=== PATIENT | male | born 1940 | race Caucasian/White ===

== ENCOUNTER 2017-10-22 10:18 | Outpatient (CLI) | payer MEDICARE, BC ==
--- NOTE | 2017-10-22 12:03 | CT ---
CT LUMBAR SPINE WITHOUT CONTRAST: INDICATION: History of low back pain and claudication. COMPARISON: CT lumbar myelogram dated 09/25/16. FINDINGS: Since the comparison examination, there has been interval revision of the patient's final instrumenta tion with extension of the interlumbar fusion from T11 through S2. The fracture of the of the pedicu lar screw on the right at L5 is unchanged. There has been replacement of the pedicular screws at S1. There is posterolateral morselized bone graft present. There is intervertebral bone cage at L2-3 w hich is new. There is slight residual retrolisthesis of L2 on L3 which is similar. Dorsal column stimulator is no longer identified. No acute fracture is demonstrated. Slight degenerative dextroscoliosis is similar. Visualized retroperitoneum demonstrates moderate calcification involving the abdominopelvic vasculatu re. 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 At L5-S1 level, there is no appreciable osseous central canal or neural foraminal narrowing. At L4-5, there is suspicion for a residual broad-based bulge. There is retrolisthesis. There is los s of disk space height. Constellation of findings of moderate bilateral neural foraminal narrowing w hich appears similar to the comparison study. At L3-4 level, there is mild left neural foraminal narrowing due to osteophyte formation. This appea rs stable to the prior exam. At L2-3, there is no appreciable osseous central canal narrowing. There is mild right osseous neural foraminal narrowing which is stable. At L1-L2, there is no appreciable osseous canal narrowing. There is mild left osseous neural foramin al narrowing which appears similar to the comparison examination. At T12-L1, there is no appreciable central canal or neural foraminal narrowing. At T11-T12, there is some ligamentous flava, hypertrophy, and calcification without appreciable osseo us central canal or neural foraminal narrowing. IMPRESSION: 1. Postoperative revision of the posterolateral spinal fusion from T11 through S2 with revision of t he pedicular screws at S1. The fracture at L5 pedicular screw is unchanged. There has been interval placement of an intervertebral disk cage at L2-3. Slight retrolisthesis of L2 on L3 is similar-appe aring. 2. Multilevel spondylosis with osseous neural foraminal narrowing is stable to the comparison exam. POS: [facility]
== END 2017-10-22 10:19 | disposition home or self-care (01) ==
LOC: CT 10:18
DX: S32.009K Unspecified fracture of unspecified lumbar vertebra, subsequent encounter for fracture with nonunion (principal); M47.26 Other spondylosis with radiculopathy, lumbar region; M43.16 Spondylolisthesis, lumbar region; M99.83 Other biomechanical lesions of lumbar region; Z98.1 Arthrodesis status
CPT/HCPCS: 72131

== ENCOUNTER 2018-04-22 06:49 | Day surgery (SDC) | payer MEDICARE, BC ==
[2018-04-21 12:29] VITALS: BMI 28.5
[2018-04-22 08:19] VITALS: BP 137/82; TEMP 97.3
--- NOTE | 2018-04-22 11:01 | RAD ---
FLUOROSCOPY MYELOGRAM THORACIC SPINE 2 VIEWS: Date: 04/22/18 HISTORY: 78-year-old male with mid back pain and low back pain. Myelogram was performed under CT guidance. Flu oroscopy performed to guide the intrathecal contrast material into the thoracic spine. FINDINGS: The patient was placed in supine Trendelenburg position on fluoroscopy table, allowing the intratheca l contrast material to enter the thoracic spine. The images demonstrate contrast material throughout the entire thoracic spinal canal. IMPRESSION: 1. Successful thoracic myelogram. 2. See separate report of the CT myelograms of the thoracic spine and lumbar spine. POS: [facility]
--- NOTE | 2018-04-22 11:41 | CT ---
CT THORACIC SPINE WITH CONTRAST: (CT THORACIC MYELOGRAM) Date: 04/22/18 HISTORY: 78-year-old male with post laminectomy syndrome and thoracic spine pain. FINDINGS: As demonstrated on the noncontrast CT of lumbar spine of 10/22/17, there are bilateral pedicle screws at T11 and T12, which were placed some time after the previous CT myelogram of the lumbar spine of 0 09/25/16 when there were pedicle screws only in all levels of the lumbar spine, but not in the lower t horacic spine. The distal tip of the left T11 pedicle screw is at the superior end plate of T11. The T11 and T12 pedicle screws do not travel lateral to the pedicles or breach the spinal canal. There is no evidence of hardware loosening involving these two levels. Vertebral body heights are maintained. Thoracic spinal cord is normal in size and position. At T11-12, there is minimal degenerative retrol isthesis of T11 on T12, with vacuum disc phenomenon. Mild, shallow broad based disc bulge at this lev el, together with the minimal retrolisthesis, cause mild-moderate thecal sac stenosis. Otherwise, the re is no high grade central spinal canal stenosis or high grade thecal sac stenosis at any level. The re is no high grade bony neural foraminal stenosis at any level in the thoracic spine. There are vent ral flowing bridging osteophytes protruding into the prevertebral space from T4-5 through T10-11, con sistent with DISH. Thoracic vertebral body heights are preserved. No focal moderate sized or large di sc herniation. No colby impingement on the spinal cord. No major pathology of the perivertebral space s. Postsurgical scar tissue is noted posterior to the dorsal lumbar fascia at the levels of the pedic le screws. IMPRESSION: 1. Bilateral pedicle screws at T11 and T12. 2. Moderate degenerative disc changes and low-grade thecal sac stenosis, at T11-12. 3. No high grade central spinal canal stenosis, high grade neural foraminal stenosis, or any other m ajor pathology identified. 4. Incidental finding of DISH (diffuse idiopathic skeletal hyperostosis). 5. See separate report of the CT lumbar myelogram. POS: [facility]
--- NOTE | 2018-04-22 12:19 | CT ---
CT GUIDED LUMBAR PUNCTURE CT LUMBAR SPINE WITH CONTRAST: (CT LUMBAR MYELOGRAM) Date: 04/22/18 HISTORY: 78-year-old male with post laminectomy syndrome, with thoracic and lumbar spine pain. COMPARISON: CT lumbar myelogram of 09/25/16, and noncontrast lumbar spine CT of 10/22/17. TECHNIQUE: Signed, informed consent obtained. Patient was placed prone on fluoroscopy table. The skin of the low er back was prepared and draped in the usual sterile fashion. 25 gauge needle was used to apply buffe red lidocaine superficially. A 22 gauge spinal needle was advanced from a right paramedian approach, and under step CT guidance, was navigated through the narrow opening of a laminectomy defect with bon y overgrowth, at the L3 level. A total of 10 mL of Isovue-M 300 was injected intrathecally. The spina l needle was removed. The patient tolerated the procedure well. There was no complication. The patien t was then taken to fluoroscopy where he was placed in Trendelenburg position, to allow the contrast to flow throughout the thoracic spine. The patient was then taken back to CT, where his entire thorac ic spine and lumbar spine were scanned while supine. Coronal and sagittal reconstructions were obtain ed. FINDINGS: There are five lumbar-type vertebrae. Vertebral body heights are maintained. Again noted are the bila teral pedicle screws at L1, L2, L3, L4, L5, S1, and S2, as on 09/25/16. Bilateral pedicle screw had b een placed by the time of the noncontrast CT of 10/22/17, at T11 and T12, with extension of interlock ing rods through those levels as well. Furthermore, an interbody cage had been placed at the L2-3 dis c space some time between 09/25/16 and 10/22/17, and it remains. Extensive postsurgical scar tissue i n the posterior perivertebral space centered at midline, contiguous with postsurgical scar tissue sup erficial to the dorsal lumbar fascia, throughout all levels from the lower thoracic spine through the sacral levels. No major pathology of the prevertebral space. T11-12: Slight degenerative retrolisthesis of T11 on T12 along with shallow, mild disc bulge-osteoph ytic bar complex, plus ligamentum flavum thickening and degenerative facet hypertrophy, result in mil d to moderate bilateral neural foraminal stenosis and mild to moderate thecal sac stenosis. T12-L1: No central stenosis. No high grade neural foraminal stenosis. Disc space maintained. Conus m edullaris terminates at mid L1 level. L1-2: Severe disc space narrowing. Slight degenerative retrolisthesis of L1 on L2. Extensive end jillian te sclerosis. No high grade central stenosis. No significant right neural foraminal stenosis. The dis c space narrowing has become worse since 09/25/16. L2-3: Interbody cage, new since 09/25/16. It has settled slightly since 10/22/17. Osseous bridges aviles ve developed between the left sides of the end plates and left endplate osteophytes indicating early successful ankylosis. Degenerative retrolisthesis of L2 on L3 is unchanged since 10/22/17. Despite th is, there is no high grade central spinal canal stenosis. Moderate to severe right neural foraminal s tenosis. Mild left neural foraminal stenosis. L3-4: Again noted are the tiny metallic markers in the intervertebral disc space. Moderate to severe disc space narrowing. Mild disc bulge-osteophytic bar complex indents the ventral aspect of the thec al sac. No osseous bridges between the end plates. Interval development of moderate left neural graciela inal stenosis due to bony overgrowth of the posterior elements since 09/25/16, not significantly rodriguez ged since 10/22/17. No high grade right neural foraminal stenosis. Ligamentum flavum thickening. Mild central spinal canal stenosis. Mild to moderate thecal sac stenosis. The caliber of the thecal sac h as not significantly changed since 09/25/16. L4-5: Heterotopic ossification that has grown medially from the bilateral posterior element onlay federico ne chip grafts partially fused with spinous processes. Slight degenerative retrolisthesis of L4 on L5 . Moderate ligamentum flavum thickening. Somewhat severe bilateral degenerative facet hypertrophy. Mo derate bilateral neural foraminal stenosis, similar to 10/22/17 and 09/25/16. Disc space maintained d espite the retrolisthesis. Mild thecal sac stenosis. No major interval change overall. L5-S1: There is interval worsening of the disc space narrowing between 09/25/16 and 10/22/17, now mo derate, with interval development of minimal Grade I anterolisthesis of L5 on S1. The bilateral S1 pe dicle screws (which had signs of loosening on 09/25/16), had been removed and replaced with new bilat eral S1 pedicle screws on 10/22/17. Those screws remain. They are in more medial positions compared t o the ones on 09/25/16. The right S1 pedicle screw traverses the right lateral recess of the spinal c anal. No signs of loosening of the current hardware. Vertebroplasty cement occupying a significant po rtion of the body of S1. S1-2: Between 09/25/16 and 10/22/17, bilateral S2 pedicle screws had been placed. The one on the rig ht traverses the posterior aspect of the right SI joint. The bilateral pedicle screws distally uyen se the anterior portions of the bilateral SI joints. The one on the right has its distal tip slightly anterior to the right ilium. The one on the left is embedded in the left ilium. No signs of hardware loosening. No signs of chronic arachnoiditis. IMPRESSION: 1. Bilateral pedicle screws at all levels from T11 through S2 connected by vertical interlocking maryann s. 2. Posterior onlay bone graft fusion around posterior elements from approximately L3-4 through S1-2. 3. No high grade central spinal canal stenosis at any level. 4. Neural foraminal stenosis at various levels as described above. 5. Multilevel degenerative disc disease, including moderate and severe levels. 6. Interbody cages of different types at L2-3 (where there is successful partial ankylosis) and L3-4 (where there is no evidence of ankylosis). 7. Old vertebroplasty cement at body of S1. 8. Multilevel high grade facet osteoarthrosis. 9. Bilateral S2 pedicle screws traverse the sacroiliac joint spaces. 10. The right S1 pedicle screw traverses the right lateral recess of the spinal canal. 11. No signs of hardware loosening. POS: [facility]
== END 2018-04-22 10:25 | disposition home or self-care (01) ==
LOC: RAD 06:49
PROVIDERS: ATTEND Specialist
PROC: B02B1ZZ Computerized Tomography (CT Scan) of Spinal Cord using Low Osmolar Contrast (ICD-10-PCS; principal; 2018-04-22)
DX: M96.1 Postlaminectomy syndrome, not elsewhere classified (principal); M47.26 Other spondylosis with radiculopathy, lumbar region; M51.16 Intervertebral disc disorders with radiculopathy, lumbar region; M51.34 Other intervertebral disc degeneration, thoracic region; M48.14 Ankylosing hyperostosis [Forestier], thoracic region; M47.814 Spondylosis without myelopathy or radiculopathy, thoracic region; I10 Essential (primary) hypertension; E78.00 Pure hypercholesterolemia, unspecified; Z79.82 Long term (current) use of aspirin; Z79.899 Other long term (current) drug therapy; Z98.1 Arthrodesis status; Z98.890 Other specified postprocedural states
CPT/HCPCS: 72129; 72132; 76000; 77002

== ENCOUNTER 2018-06-30 13:29 | Day surgery (SDC) | payer MEDICARE, BC ==
[2018-06-29 11:36] VITALS: BMI 29.2
[2018-06-30] MEDS ORDERED: Bupivacaine HCl 0.5%/Epinephrine 1:200,000/PF 30 ml Vial ONE (15:58)
[2018-06-30] MEDS ORDERED: Lidocaine 2% PF 5 ML VIAL ONE (15:58)
[2018-06-30] MEDS ORDERED: Sodium Chloride 0.9% 0 ML ONE (15:58)
[2018-06-30] MEDS ORDERED: Fentanyl 100 MCG/2 ML VIAL ONE ×2 (16:00→18:50)
[2018-06-30] MEDS ORDERED: Propofol 500 MG/50 ML VIAL ONE (16:00)
[2018-06-30] MEDS ORDERED: PROPOFOL 200 MG/20 ML VIAL ONE (16:28)
[2018-06-30] MEDS ORDERED: HYDROcodone/Acetaminophen 5/325 mg Tablet ONE (19:24)
--- NOTE | 2018-06-30 21:12 | RAD ---
SINGLE SUBMITTED FLUOROSCOPIC IMAGE FROM INSERTION OF A STIMULATOR TO THE SPINAL CORD 06/30/18 FINDINGS: There is a dorsal column stimulator projecting off to the mid thoracic spinal level. Total fluoroscop ic time was 3 minutes and 35 seconds. Total exposure was 48.4 mGy. IMPRESSION: Intraoperative C-arm for dorsal column stimulator placement. POS: [facility]
--- NOTE | 2018-07-01 01:09 | OP ---
DATE OF PROCEDURE: 06/30/2018 PREOPERATIVE DIAGNOSES: 1. Post-laminectomy syndrome. 2. Chronic pain syndrome. 3. Lumbar radiculopathy. POSTOPERATIVE DIAGNOSES: 1. Post-laminectomy syndrome. 2. Chronic pain syndrome. 3. Lumbar radiculopathy. PROCEDURES PERFORMED: 1. Spinal cord stimulator generator implant. 2. Spinal cord stimulator lead implant x2. 3. Fluoroscopy. 4. Programming. SPECIMENS: None. ESTIMATED BLOOD LOSS: Minimal. SUMMARY OF PROCEDURE: The patient was taken to the procedure room, placed prone on the procedure room table. A time-out was performed. ChloraPrep was used to prep the skin and sterile drapes were applied. Using fluoroscopy, we located the interspace of T9-10. We anesthetized the skin in a vertical fashion at this level and used the scalpel to make an incision. This was blunt dissected down to the fascia. A 14-gauge supplied Tuohy needle was inserted through the skin and advanced to the ligament. Once inside the ligament, we used loss of resistance to air to gain access to the epidural space. Aspiration was negative for heme or CSF. We then threaded an 8-contact lead up the midline dorsal epidural space up to the midbody of T5. We then placed a contralateral lead in the exact same fashion and threaded up the midline dorsal epidural space so that it was just below the top lead, this was at T8. Stimulation was performed and the patient noted paresthesia in all pain areas. The needles were then removed taking care not to move the leads. Anchors were placed over the leads and these were clicked down to secure them to the lead, 2-0 silk suture was used x2 to fix both anchors to the fascia. We then placed a tension relief loop with 2-0 silk suture x2 as well. A battery pocket was made in the right flank, which was the patient's request. We anesthetized the skin with 0.5% Marcaine with epinephrine. We made an incision and dissected this bluntly down to Diana's fascia. We then dissected superior and inferior. We used a tunneling device to make a tunnel between the two incision points. We threaded both leads through this tunneling device and brought them to the battery pocket. We connected them to the battery and torqued them down, all impedances were good. We inserted the battery into the pocket and then we approximated both fascia layers with 2-0 silk suture in simple interrupted fashion with two anatomical layers. We then approximated the skin using a subcuticular stitch with 3-0 Monocryl. We used Dermabond as an occlusive dressing. The patient was taken to the PACU under stable conditions without any apparent complications noted at this time. Job ID: [id number]
--- NOTE | 2018-07-01 07:11 | EKG ---
Test Reason : PREOP Blood Pressure : / mmHG Vent. Rate : 062 BPM Atrial Rate : 062 BPM P-R Int : 214 ms QRS Dur : 094 ms QT Int : 394 ms P-R-T Axes : 026 -24 -05 degrees QTc Int : 399 ms Sinus rhythm with 1st degree A-V block Moderate voltage criteria for LVH, may be normal variant Borderline ECG When compared with ECG of 02-APR-2016 11:53, MT interval has increased Vent. rate has decreased BY 33 BPM Inverted T waves have replaced nonspecific T wave abnormality in Inferior leads Confirmed by MORENITA JEONG ([id number]) on 07/01/2018 7:10:56 AM Referred By: JOSE DE JESUS Confirmed By:MORENITA JEONG
== END 2018-06-30 19:45 | disposition home or self-care (01) ==
LOC: SDC 13:29
PROVIDERS: ATTEND Specialist
PROC: 0JH70DZ Insertion of Multiple Array Stimulator Generator into Back Subcutaneous Tissue and Fascia, Open Approach (ICD-10-PCS; principal; 2018-06-30)
PROC: 00HU3MZ Insertion of Neurostimulator Lead into Spinal Canal, Percutaneous Approach (ICD-10-PCS; 2018-06-30)
DX: M96.1 Postlaminectomy syndrome, not elsewhere classified (principal); G89.4 Chronic pain syndrome; M47.26 Other spondylosis with radiculopathy, lumbar region; M47.817 Spondylosis without myelopathy or radiculopathy, lumbosacral region; M47.814 Spondylosis without myelopathy or radiculopathy, thoracic region; M46.1 Sacroiliitis, not elsewhere classified; G47.33 Obstructive sleep apnea (adult) (pediatric); E78.5 Hyperlipidemia, unspecified; N40.0 Benign prostatic hyperplasia without lower urinary tract symptoms; I10 Essential (primary) hypertension; E78.00 Pure hypercholesterolemia, unspecified; Z79.82 Long term (current) use of aspirin; Z79.891 Long term (current) use of opiate analgesic; Z79.899 Other long term (current) drug therapy; Z98.890 Other specified postprocedural states; Z99.89 Dependence on other enabling machines and devices
CPT/HCPCS: 63650 ×2; 63685; 72020; 76000; 93005; C1767; 93010; J0670; J2001; J2704; J3010; J3490

== ENCOUNTER 2018-10-10 06:57 | Day surgery (SDC) | payer MEDICARE, BC ==
[2018-10-07 14:15] VITALS: BMI 29.9
[2018-10-10 08:02] VITALS: BP 162/84; TEMP 97.3
--- NOTE | 2018-10-10 08:28 | RAD ---
Please see accompanying CT myelogram dictation
--- NOTE | 2018-10-10 09:55 | CT ---
CT LUMBAR MYELOGRAM: INDICATIONS: Radiculopathy and post laminectomy syndrome COMPARISON: CT lumbar myelogram dated April 22, 2018 TECHNIQUE: Multiple CT images were obtained of the lumbar spine following the intrathecal administration of an C T contrastsolution. Please see the lumbar myelogram for details concerning the injection technique. Axial, coronal, and sagittal reformatted images were constructed from the raw data. FINDINGS: Visualized retroperitoneal and paravertebral soft tissues: There are moderate vascular calcifications seen involving the visualized vasculature. Spinal alignment: See below Spinal instrumentation or postsurgical change: The posterior lateral spinal instrumentation of T11-L2 is relatively stable. The fractured pedicle screw on the right at L5 is stable. The position of the screws within the SI joints at S2 and within the right lateral recess at S1 are stable. There is worsening lucency surrounding the T11 pedicle screws suspicious for loosening. Vertebroplasty change at S1 is stable. At L5-S1, minimal grade 1 anterolisthesis of L5 on S1 is stable. The [id number] bilateral osseo us neural foramina foraminal narrowing secondary to loss of disc space height and disc degenerative disease is stable.. At L4-5, broad-based disc osteophyte complex with facet hypertrophy inducing moderate bilateral neura l foraminal narrowing is stable. There is very slight retrolisthesis of L4 on L5 which is stable. At L3-4, broad-based osteophyte complex and facet hypertrophy inducing mild right and moderate left n eural foramina is stable. At L2-3, osteophyte complex with facet hypertrophy induces stable moderate right and mild left neural foraminal narrowing. At L1-L2, osteophyte complex with facet hypertrophy induces stable veva-by-[id number] left neural graciela inal narrowing. At T12-L1, there is no appreciable central canal or neuroforaminal narrowing. IMPRESSION: 1. Stable multilevel spondylosis of the lumbar spine with multilevel neural foraminal narrowing. 2. Interval development of lucency surrounding the T11 pedicle screws suspicious for loosening.
[2018-10-10] MEDS ORDERED: Iopamidol-M 200 41% 20 ML VIAL ONE (11:11)
== END 2018-10-10 10:10 | disposition home or self-care (01) ==
LOC: RAD 06:57
PROVIDERS: ATTEND Specialist
PROC: B01B1ZZ Fluoroscopy of Spinal Cord using Low Osmolar Contrast (ICD-10-PCS; principal; 2018-10-10)
DX: M47.26 Other spondylosis with radiculopathy, lumbar region (principal); M96.1 Postlaminectomy syndrome, not elsewhere classified; G89.4 Chronic pain syndrome; I10 Essential (primary) hypertension; E78.00 Pure hypercholesterolemia, unspecified; G47.30 Sleep apnea, unspecified; Z99.89 Dependence on other enabling machines and devices; Z79.82 Long term (current) use of aspirin; Z79.899 Other long term (current) drug therapy
CPT/HCPCS: 62304; 72132; Q9966

== ENCOUNTER 2019-01-25 07:13 | Day surgery (SDC) | payer MEDICARE, BC ==
[2019-01-24 12:34] VITALS: BMI 29.9
--- NOTE | 2019-01-25 09:43 | CT ---
CT GUIDED LUMBAR PUNCTURE: INDICATIONS: History of cervical radiculopathy and neck pain with a requested CT cervical myelogram. TECHNIQUE: Review of the patient's prior CT lumbar myelogram was performed from 10/10/2018. There is extensive posterior and posterolateral bone graft overlying the lumbar spine, which would ma ke fluoroscopic lumbar puncture and subsequent myelogram difficult. The patient was then transported to the CT suite for CT guided lumbar myelogram. The site overlying the right L3-L4 inter laminar space was marked. The patient has a right L3-L4 laminectomy defect site which could be utilized to gain access to the spinal canal. The site was marked on the skin. The site was prepped and draped in the usual sterile fashion. Buffered 1% lidocaine was administered to the overlying subcutaneous tissues. Under CT fluoroscopic guidance, a 22 gauge spinal needle was guided through th e right L3-L4 laminectomy site into the spinal thecal sac. There is spontaneous return of normal appearing CSF fluid. Subsequent fluoroscopic images demonstrate opacification of the thecal sac. Fol lowing administration of 14 cc of Isovue 300 M, the inner stylette was replaced within the spinal needle and the spinal needle was removed. The site was then cleansed and bandage. The patient was the n transferred to a hospital bed in placed in Trendelenburg for 15 minutes for opacification of the thecal sac up to the level of the cervical spine. The patient is to have a follow-up CT cervical mye logram for further evaluation. The patient tolerated the procedure without difficulty. IMPRESSION: Successful CT guided lumbar myelogram. Transcribed Date/Time: 01/25/2019 9:48 AM
--- NOTE | 2019-01-25 09:49 | CT ---
CT CERVICAL MYELOGRAM: INDICATIONS: History of spondylosis and cervical radiculopathy. TECHNIQUE: Following intrathecal administration of approximately 14 cc of Isovue 300 M and placing the patient i n the Trendelenburg position on a hospital bed, axial CT images were obtained of the cervical spine, demonstrating opacification of the thecal sac. Multiplanar reformatted images were obtained o f the cervical spine. Comparisons were made with the prior CT cervical myelogram performed at [facility] dated 03/19/2015. FINDINGS: There is stable post surgical change of an ACDF, spanning C5 through C7, with solid osseous incorpora tion of the bone graft of C5-C6 and C6-C7. The instrumentation appears unchanged in position. Again seen are vascular calcifications involving the carotid arteries. There is a retained metallic density seen just superficial to the right parotid, which is stable. No lymphadenopathy is noted. The visualized lung apices are clear. At the C2-C3 level, there is moderate facet joint degenerative change, which is stable. At C3-C4, there is uncovertebral hypertrophy with severe right-sided facet joint degenerative change inducing stable moderate right neural foraminal narrowing. At C4-C5, there is severe facet joint degenerative change, which is stable. There is no appreciable central canal or neural foraminal narrowing. At C5-C6, there is some residual mild right osseous neural foraminal narrowing due to facet hypertrop hy. At C6-C7, there is no appreciable central canal or neural foraminal narrowing. At C7-T1, there is no appreciable central canal or neural foraminal narrowing. IMPRESSION: 1. Stable post surgical change of the cervical spine. 2. Stable moderate right neural foraminal narrowing at C3-C4 due to uncovertebral hypertrophy and fa cet joint degenerative change. 3. Stable mild right osseous neural foraminal narrowing at C5-C6 due to facet hypertrophy. Transcribed Date/Time: 01/25/2019 10:33 AM
== END 2019-01-25 09:55 | disposition home or self-care (01) ==
LOC: RAD 07:13
PROVIDERS: ATTEND Specialist
PROC: B02B1ZZ Computerized Tomography (CT Scan) of Spinal Cord using Low Osmolar Contrast (ICD-10-PCS; principal; 2019-01-25)
DX: M47.22 Other spondylosis with radiculopathy, cervical region (principal); M48.02 Spinal stenosis, cervical region; M47.814 Spondylosis without myelopathy or radiculopathy, thoracic region; M47.26 Other spondylosis with radiculopathy, lumbar region; M47.817 Spondylosis without myelopathy or radiculopathy, lumbosacral region; M96.1 Postlaminectomy syndrome, not elsewhere classified; G89.4 Chronic pain syndrome; M46.1 Sacroiliitis, not elsewhere classified; I10 Essential (primary) hypertension; G47.30 Sleep apnea, unspecified; Z79.82 Long term (current) use of aspirin; Z79.899 Other long term (current) drug therapy; Z98.1 Arthrodesis status; Z99.89 Dependence on other enabling machines and devices
CPT/HCPCS: 72126; 77002

== ENCOUNTER 2019-12-29 10:16 | Outpatient (CLI) | payer MEDICARE, BC ==
--- NOTE | 2019-12-29 11:01 | RAD ---
EXAM: XR Thoracic Spine 3 V STANDARD PROVIDED CLINICAL HISTORY: Spondylosis of the thoracic region. Thoracic back pain after a fall 2 weeks ago. COMPARISON: None. FINDINGS: Postoperative changes related to anterior cervical fusion lower cervical spine and cervicothoracic ju nction are noted. There is partial visualization of postoperative changes involving the lower thoracic and upper lumbar spine with bipedicular screws and posterior rods visualized. One of the scr ews within the left aspect of the T11 vertebral body approaches the endplate and intervertebral disc space. There does appear to be subtle lucency surrounding these pedicular screws, and hardware l oosening is a possibility. Dorsal column stimulator leads are seen overlying the thoracic spine with most superiorly located lead overlying the T5 vertebral body. Multilevel osteophytes are seen in the lumbar spine with bridging osteophytes at multiple levels. The vertebral body heights do appear to be within normal limits, and no obvious fracture seen, and there is no evidence of a subluxation. IMPRESSION: 1. Degenerative changes thoracic spine without fracture or subluxation visualized. 2. Postoperative changes thoracolumbar spine with bipedicular screws seen at multiple levels with the left pedicular screw in the T11 vertebral body approaching the superior endplate of the T11 vertebral body. In addition, there is suggestion of slight lucency surrounding these pedicular screws in the T11 vertebral body which may be related to hardware loosening. 3. Diffuse idiopathic skeletal hyperostosis (D PUMA).
--- NOTE | 2019-12-29 12:14 | RAD ---
TWO VIEWS LUMBAR SPINE: COMPARISON: 08/13/2016. FINDINGS: Interval placement of bilateral transpedicular screws at T11 and T12 as well as interval placement of bilateral transpedicular screws at S2. There is perihardware lucency involving bilateral S2 transpe dicular screws. Both of these screws traverse the left and right SI joints. Redemonstration of a di sk prosthesis at L3-L4. Interval placement of a disk prosthesis at L2-L3 with a metallic cage. There does appear to be 1.9 mm of retrolisthesis of L4 upon L5. There is a broken screw at L5. Posterior element hypertrophy is identified. Stable dorsal column stimulator. IMPRESSION: 1. Interval placement of a metallic cage at the L2-L3 disk space. 2. Hardware revision. There are 2 new screws at the S2 level. Both screws have perihardware lucenc y. Additional new screws have been placed at T11 and T12. POS: [facility]
== END 2019-12-29 10:17 | disposition home or self-care (01) ==
LOC: BICRAD 10:16
PROVIDERS: ATTEND Nurse Practitioner Family
DX: M47.814 Spondylosis without myelopathy or radiculopathy, thoracic region (principal); M47.817 Spondylosis without myelopathy or radiculopathy, lumbosacral region; M48.14 Ankylosing hyperostosis [Forestier], thoracic region; Z98.890 Other specified postprocedural states
CPT/HCPCS: 72072; 72100

== ENCOUNTER 2020-11-29 06:52 | Day surgery (SDC) | payer MEDICARE, BC ==
[2020-11-28 12:57] VITALS: BMI 29.2
[2020-11-29] MEDS ORDERED: Fentanyl 100 MCG/2 ML VIAL ONE (08:21)
[2020-11-29] MEDS ORDERED: Midazolam HCl 2 mg/2 ml Vial ONE (08:21)
[2020-11-29] MEDS ORDERED: Neomycin-Polymyxin 1 ML AMP ONE (10:05)
[2020-11-29] MEDS ORDERED: Sodium Chloride 0.9% 0 ML ONE (10:05)
[2020-11-29] MEDS ORDERED: Bupivacaine PF 0.5% 30 ML VIAL ONE (10:05)
[2020-11-29] MEDS ORDERED: Bacitracin Zinc Ointment 30 gm TUBE ONE (10:05)
[2020-11-29] MEDS ORDERED: Phenylephrine 10 MG/ML VIAL ONE (10:18)
[2020-11-29] MEDS ORDERED: Ketorolac Tromethamine 30 MG/ML VIAL ONE (10:32)
[2020-11-29] MEDS ORDERED: PROPOFOL 200 MG/20 ML VIAL ONE (10:32)
[2020-11-29] MEDS ORDERED: Dexamethasone 20 MG/5 ML VIAL ONE (10:32)
[2020-11-29] MEDS ORDERED: ePHEDrine 50 MG/ML VIAL ONE (10:32)
[2020-11-29] MEDS ORDERED: Ondansetron PF 4 MG/2 ML Vial ONE (10:32)
[2020-11-29] MEDS ORDERED: Bupivacaine HCl 0.5%/Epinephrine 1:200,000/PF 30 ml Vial ONE (10:32)
[2020-11-29] MEDS ORDERED: Lidocaine 1% PF 5 ML VIAL ONE (10:32)
== END 2020-11-29 15:28 | disposition home or self-care (01) ==
LOC: SDC 06:52
PROVIDERS: ATTEND Orthopaedic Surgery Hand Surgery
PROC: 0LU607Z Supplement Left Lower Arm and Wrist Tendon with Autologous Tissue Substitute, Open Approach (ICD-10-PCS; principal; 2020-11-29)
PROC: 0RQT0ZZ Repair Left Carpometacarpal Joint, Open Approach (ICD-10-PCS; 2020-11-29)
DX: M18.12 Unilateral primary osteoarthritis of first carpometacarpal joint, left hand (principal); I10 Essential (primary) hypertension; E78.00 Pure hypercholesterolemia, unspecified; G47.30 Sleep apnea, unspecified; Z79.899 Other long term (current) drug therapy; Z79.82 Long term (current) use of aspirin
CPT/HCPCS: 25312; 25447; 73140; 76000; C1713; J0690; J2250; J2370; J3010; S0020

== ENCOUNTER 2022-06-10 11:00 | Inpatient (IN) | payer MEDICARE ==
[2022-06-11 12:19] LABS: #Eosinphils 0.1 10x3/uL (0.0-0.5); #Monocytes 0.3 10x3/uL (0.0-1.1); #Neutrophils 1.9 10x3/uL (1.5-8.4); %Basophils 0.3 % (0.0-2.0); %Eosinophils 2.8 % (0.0-6.0); %Lymphocytes 33.2 % (18.0-47.0); %Monocytes 9.3 % (0.0-10.0); %Neutrophils 54.1 % (40.0-75.0); Hemoglobin 12.1 g/dL (13.5-17.5); Mean Corpuscular HGB CONC 34.8 g/dL (32.0-36.0); Mean Corpuscular Hemoglobin 31.8 pg (27.0-33.0); Mean Corpuscular Volume 91.3 fl (81.2-95.1); Mean Platelet Volume 9.8 fl (7.4-10.4); Platelet Count 167 10x3/uL (150-450); RBC Distribution Width 11.6 % (11.5-14.5); Red Blood Cell (RBC) Count 3.81 10x6/uL (4.32-5.72); White Blood Cell (WBC) Count 3.6 10x3/uL (3.5-10.5)
[2022-06-11 12:21] LABS: Bilirubin Neg (Negative); Blood, Urine Negative (Negative); Clarity Slightly Cloudy (Clear); Glucose, Urine (Dipstick) Normal (Negative); Ketone, Urine Negative (Negative); Leukocyte Negative (Negative); Nitrite Negative (Negative); Protein, Urine (Dipstick) Negative (Neg-Trace); Urobilinogen Normal mg/dL (Less than 2)
[2022-06-11 12:26] VITALS: BMI 29.9
[2022-06-11 12:28] LABS: INR-International Normal Ratio 0.9
[2022-06-11 12:32] LABS: Anion Gap 13 mmol/L (10-20); BUN (Urea Nitrogen) 14 mg/dL (8.4-25.7); Calc. Creatinine Clearance 0 mL/min (70-130); Calcium 8.9 mg/dL (7.8-10.44); Carbon Dioxide 28 mmol/L (23-31); Chloride 103 mmol/L (98-107); Estimated GFR 86; Glucose 93 mg/dL (83-110); Potassium 4.3 mmol/L (3.5-5.1); Sodium 140 mmol/L (136-145)
[2022-06-15] MEDS ORDERED: Sodium Chloride 0.9% 100 ML ONE ×2 (06:11→07:20)
[2022-06-15] MEDS ORDERED: Tranexamic Acid 1,000 MG/10 ML VIAL ONE (06:11)
[2022-06-15] MEDS ORDERED: Vancomycin (BATCH) 1.5 GRAM/300 ML BAG ONE (06:11)
[2022-06-15] MEDS ORDERED: Lidocaine 1% (PF) 30 ML VIAL ONE (06:28)
[2022-06-15] MEDS ORDERED: Bupivacaine PF 0.5% 30 ML VIAL ONE ×2 (06:28→06:44)
[2022-06-15] MEDS ORDERED: methylPREDNISolone Acetate 40 mg/ml Vial ONE ×2 (06:28)
[2022-06-15] MEDS ORDERED: Fentanyl 100 MCG/2 ML VIAL ONE ×4 (06:44→10:38)
[2022-06-15] MEDS ORDERED: Midazolam HCl 2 mg/2 ml Vial ONE (06:44)
[2022-06-15] MEDS ORDERED: Bupivacaine HCl 0.5%/Epinephrine 1:200,000/PF 30 ml Vial ONE (06:45)
[2022-06-15] MEDS ORDERED: ePHEDrine 50 MG/ML VIAL ONE (06:45)
[2022-06-15] MEDS ORDERED: PROPOFOL 200 MG/20 ML VIAL ONE (06:45)
[2022-06-15] MEDS ORDERED: Ondansetron PF 4 MG/2 ML Vial ONE (06:45)
[2022-06-15] MEDS ORDERED: Lidocaine 1% PF 5 ML VIAL ONE (06:45)
[2022-06-15] MEDS ORDERED: CEFAZOLIN 2 GM VIAL ONE (07:20)
[2022-06-15] MEDS ORDERED: Tranexamic Acid 1,000 MG in Sodium Chloride 0.9% 100 ML IVPB SCH (07:30)
[2022-06-15] MEDS ORDERED: traMADol HCl 50 MG TAB PO PRN ×2 (07:30)
[2022-06-15] MEDS ORDERED: Promethazine HCl 25 MG/ML VIAL IM PRN ×3 (07:30→09:23)
[2022-06-15] MEDS ORDERED: Ropivacaine 0.2% 550 ML 550 ML NERVE BLCK SCH (07:30)
[2022-06-15] MEDS ORDERED: Zolpidem Tartrate 5 MG TAB PO PRN (07:30)
[2022-06-15] MEDS ORDERED: HYDROcodone/Acetaminophen 10/325 mg Tablet PO PRN ×3 (07:30→07:31)
[2022-06-15] MEDS ORDERED: Ondansetron PF 4 MG/2 ML Vial IVP PRN ×2 (07:30→07:31)
[2022-06-15] MEDS ORDERED: Fentanyl 100 MCG/2 ML VIAL SLOW IVP PRN (07:31)
[2022-06-15] MEDS ORDERED: Acetaminophen 325 MG TAB PO PRN (07:31)
[2022-06-15] MEDS ORDERED: Fentanyl 100 MCG/2 ML VIAL IV PRN (07:31)
[2022-06-15] MEDS ORDERED: diphenhydrAMINE 25 MG CAP PO PRN (07:31)
[2022-06-15 07:34] LABS: SARS-CoV-2 NAA Rapid Test Not Detected (NotDetected)
[2022-06-15] MEDS ORDERED: Morphine 10 MG/ML VIAL ONE (07:37)
[2022-06-15] MEDS ORDERED: Aspirin 81 mg Enteric Coated Tablet PO SCH (09:00)
[2022-06-15] MEDS ORDERED: HYDROmorphone 2 MG/ML VIAL SLOW IVP PRN (09:23)
[2022-06-15] MEDS ORDERED: Ondansetron HCl/PF 4 MG/2 ML Vial IVP PRN (09:23)
[2022-06-15] MEDS ORDERED: HYDROmorphone 2 MG/ML VIAL ONE (09:47)
[2022-06-15] MEDS ORDERED: Promethazine HCl 25 MG/ML VIAL ONE (09:55)
[2022-06-15] MEDS ORDERED: Labetalol HCl 100 MG/20 ML VIAL ONE (10:38)
[2022-06-15] MEDS ORDERED: HYDROmorphone 0.5 MG/0.5 ML SYRINGE ONE ×3 (11:04→12:02)
[2022-06-15] MEDS ORDERED: Labetalol HCl 100 MG/20 ML VIAL SLOW IVP PRN (11:09)
[2022-06-15] MEDS ORDERED: HYDROmorphone 0.5 MG/0.5 ML SYRINGE SLOW IVP SCH (11:15)
[2022-06-15] MEDS ORDERED: Ketorolac Tromethamine 30 MG/ML VIAL IVP SCH (12:00)
[2022-06-15] MEDS ORDERED: hydrALAZINE 20 MG/ML VIAL ONE (12:10)
[2022-06-15] MEDS ORDERED: Ketorolac Tromethamine 30 MG/ML VIAL ONE (14:20)
[2022-06-15] MEDS: Ketorolac Tromethamine 30 MG/ML VIAL IVP SCH ×2 (14:25→23:18)
[2022-06-15] MEDS: Gabapentin 400 MG CAP PO SCH ×4 (14:30→20:09)
[2022-06-15] MEDS: Sodium Chloride 0.9% 1,000 ML IV SCH ×2 (15:36→18:25)
[2022-06-15] MEDS: Cholecalciferol 1,000 UNITS (25 MCG) TAB PO SCH (15:37)
[2022-06-15] MEDS: Aspirin Chewable 81 MG TAB PO SCH (15:37)
[2022-06-15] MEDS: DULoxetine 60 MG CAP PO SCH (15:37)
[2022-06-15] MEDS: Fish Oil 1,000 MG CAP PO SCH (15:37)
[2022-06-15] MEDS: Gabapentin 300 MG CAP PO SCH (15:37)
[2022-06-15] MEDS: Multivitamin W/ Minerals 1 TAB PO SCH (15:37)
[2022-06-15] MEDS: Ferrous Gluconate 324 MG TAB PO SCH ×2 (15:37→20:09)
[2022-06-15] MEDS: Senokot S 8.6-50 MG TAB PO SCH ×2 (15:38→20:10)
[2022-06-15] MEDS: CEFAZOLIN 2 GM in Sodium Chloride 0.9% 100 ML IVPB SCH ×2 (16:02→23:19)
[2022-06-15] MEDS ORDERED: Vancomycin HCl 1.5 GM in Sodium Chloride 0.9% 250 ML 300 ML IVPB SCH (18:00)
[2022-06-15] MEDS ORDERED: Vancomycin 1.5 GRAM/300 ML BAG 1.5 GM in Premix Bag 1 BAG IVPB SCH (18:00)
[2022-06-15] MEDS: HYDROcodone/Acetaminophen 10/325 mg Tablet PO PRN (18:22)
[2022-06-15] MEDS: Tamsulosin HCl 0.4 MG CAP PO SCH (20:09)
[2022-06-15] MEDS: tiZANidine HCl 4 MG TAB PO SCH (20:10)
[2022-06-15] MEDS: Atorvastatin Calcium 20 MG TAB PO SCH (20:10)
[2022-06-15] MEDS ORDERED: HYDROCODONE BITARTRATE 60 MG PO SCH (21:00)
[2022-06-15] MEDS: Azelastine 137 MCG/Spray 30 ML NS SCH (23:19)
[2022-06-16] MEDS: Sodium Chloride 0.9% 1,000 ML IV SCH ×2 (03:03→12:45)
[2022-06-16] MEDS: HYDROcodone/Acetaminophen 10/325 mg Tablet PO PRN ×3 (03:44→15:46)
[2022-06-16] MEDS: Ketorolac Tromethamine 30 MG/ML VIAL IVP SCH ×2 (05:08→13:07)
[2022-06-16 05:54] LABS: Hemoglobin 10.1 g/dL (14.0-18.0); Mean Corpuscular Hemoglobin 32.2 pg (27.0-31.0); Mean Corpuscular Volume 94.5 fl (78.0-98.0); Mean Platelet Volume 7.6 fL (7.4-10.4); Platelet Count 133 10x3/uL (130-400); Red Blood Cell (RBC) Count 3.14 mill/uL (4.70-6.10); White Blood Cell (WBC) Count 5.4 10x3/uL (4.8-10.8)
[2022-06-16] MEDS: [UNRECOGNIZED DRUG - OTHER] PO SCH (08:11)
[2022-06-16] MEDS: Gabapentin 300 MG CAP PO SCH (08:21)
[2022-06-16] MEDS: DULoxetine 60 MG CAP PO SCH (08:21)
[2022-06-16] MEDS: Aspirin Chewable 81 MG TAB PO SCH (08:21)
[2022-06-16] MEDS: Ferrous Gluconate 324 MG TAB PO SCH ×2 (08:21→20:23)
[2022-06-16] MEDS: Senokot S 8.6-50 MG TAB PO SCH ×2 (08:21→20:24)
[2022-06-16] MEDS: Multivitamin W/ Minerals 1 TAB PO SCH (08:21)
[2022-06-16] MEDS: Fish Oil 1,000 MG CAP PO SCH (08:21)
[2022-06-16] MEDS: traMADol HCl 50 MG TAB PO PRN (08:22)
[2022-06-16] MEDS: Gabapentin 400 MG CAP PO SCH ×4 (08:22→20:24)
[2022-06-16] MEDS: Cholecalciferol 1,000 UNITS (25 MCG) TAB PO SCH (08:22)
[2022-06-16] MEDS: Cyclobenzaprine 10 MG TAB PO PRN (12:21)
[2022-06-16] MEDS: Azelastine 137 MCG/Spray 30 ML NS SCH (20:22)
[2022-06-16] MEDS: Tamsulosin HCl 0.4 MG CAP PO SCH (20:23)
[2022-06-16] MEDS: tiZANidine HCl 4 MG TAB PO SCH (20:24)
[2022-06-16] MEDS: Atorvastatin Calcium 20 MG TAB PO SCH (20:25)
[2022-06-17] MEDS: Ketorolac Tromethamine 30 MG/ML VIAL IVP SCH ×3 (00:12→14:06)
[2022-06-17] MEDS: HYDROcodone/Acetaminophen 10/325 mg Tablet PO PRN ×4 (00:13→18:13)
[2022-06-17] MEDS: Sodium Chloride 0.9% 1,000 ML IV SCH ×3 (00:27→20:24)
[2022-06-17] MEDS: Cyclobenzaprine 10 MG TAB PO PRN ×2 (05:08→16:23)
[2022-06-17] MEDS: traMADol HCl 50 MG TAB PO PRN ×2 (06:18→20:25)
[2022-06-17 06:51] LABS: Hemoglobin 9.4 g/dL (14.0-18.0); Mean Corpuscular HGB CONC 34.3 g/dL (32.0-36.0); Mean Corpuscular Hemoglobin 32.6 pg (27.0-31.0); Mean Corpuscular Volume 95.1 fl (78.0-98.0); Mean Platelet Volume 7.7 fL (7.4-10.4); Platelet Count 110 10x3/uL (130-400); RBC Distribution Width 10.9 % (11.5-14.5); Red Blood Cell (RBC) Count 2.89 mill/uL (4.70-6.10); White Blood Cell (WBC) Count 5.4 10x3/uL (4.8-10.8)
[2022-06-17] MEDS: Aspirin Chewable 81 MG TAB PO SCH (09:05)
[2022-06-17] MEDS: Cholecalciferol 1,000 UNITS (25 MCG) TAB PO SCH (09:05)
[2022-06-17] MEDS: DULoxetine 60 MG CAP PO SCH (09:06)
[2022-06-17] MEDS: Ferrous Gluconate 324 MG TAB PO SCH ×2 (09:06→20:23)
[2022-06-17] MEDS: Fish Oil 1,000 MG CAP PO SCH (09:06)
[2022-06-17] MEDS: Gabapentin 300 MG CAP PO SCH (09:07)
[2022-06-17] MEDS: Gabapentin 400 MG CAP PO SCH ×4 (09:07→20:24)
[2022-06-17] MEDS: Senokot S 8.6-50 MG TAB PO SCH ×2 (09:08→20:24)
[2022-06-17] MEDS: Multivitamin W/ Minerals 1 TAB PO SCH (09:08)
[2022-06-17] MEDS: Tamsulosin HCl 0.4 MG CAP PO SCH (20:24)
[2022-06-17] MEDS: tiZANidine HCl 4 MG TAB PO SCH (20:24)
[2022-06-17] MEDS: Azelastine 137 MCG/Spray 30 ML NS SCH (20:24)
[2022-06-17] MEDS: Atorvastatin Calcium 20 MG TAB PO SCH (20:24)
[2022-06-18] MEDS: Sodium Chloride 0.9% 1,000 ML IV SCH ×2 (03:42→13:12)
[2022-06-18] MEDS: HYDROcodone/Acetaminophen 10/325 mg Tablet PO PRN ×4 (05:55→20:10)
[2022-06-18] MEDS: Cyclobenzaprine 10 MG TAB PO PRN ×2 (05:56→17:37)
[2022-06-18 06:14] LABS: Hemoglobin 9.6 g/dL (14.0-18.0); Mean Corpuscular HGB CONC 34.7 g/dL (32.0-36.0); Mean Corpuscular Hemoglobin 32.9 pg (27.0-31.0); Mean Corpuscular Volume 94.8 fl (78.0-98.0); Mean Platelet Volume 7.6 fL (7.4-10.4); Platelet Count 132 10x3/uL (130-400); RBC Distribution Width 10.8 % (11.5-14.5); Red Blood Cell (RBC) Count 2.92 mill/uL (4.70-6.10); White Blood Cell (WBC) Count 5.3 10x3/uL (4.8-10.8)
[2022-06-18] MEDS: Aspirin Chewable 81 MG TAB PO SCH (09:04)
[2022-06-18] MEDS: Gabapentin 400 MG CAP PO SCH ×4 (09:04→20:07)
[2022-06-18] MEDS: Ferrous Gluconate 324 MG TAB PO SCH ×2 (09:04→20:07)
[2022-06-18] MEDS: DULoxetine 60 MG CAP PO SCH (09:06)
[2022-06-18] MEDS: Gabapentin 300 MG CAP PO SCH (09:06)
[2022-06-18] MEDS: Fish Oil 1,000 MG CAP PO SCH (09:06)
[2022-06-18] MEDS: traMADol HCl 50 MG TAB PO PRN (09:07)
[2022-06-18] MEDS: Cholecalciferol 1,000 UNITS (25 MCG) TAB PO SCH (09:07)
[2022-06-18] MEDS: Multivitamin W/ Minerals 1 TAB PO SCH (09:07)
[2022-06-18] MEDS: Senokot S 8.6-50 MG TAB PO SCH ×2 (09:07→20:07)
[2022-06-18] MEDS ORDERED: Sodium Chloride 0.9% 1,000 ML IV SCH (15:28)
[2022-06-18] MEDS ORDERED: hydrALAZINE 20 MG/ML VIAL SLOW IVP PRN (15:28)
[2022-06-18] MEDS ORDERED: Amlodipine 5 MG TAB PO SCH (16:00)
[2022-06-18] MEDS: Atorvastatin Calcium 20 MG TAB PO SCH (20:06)
[2022-06-18] MEDS: tiZANidine HCl 4 MG TAB PO SCH (20:07)
[2022-06-18] MEDS: Tamsulosin HCl 0.4 MG CAP PO SCH (20:07)
[2022-06-18] MEDS: Azelastine 137 MCG/Spray 30 ML NS SCH (20:09)
[2022-06-19] MEDS: traMADol HCl 50 MG TAB PO PRN ×2 (01:08→08:47)
[2022-06-19] MEDS: Cyclobenzaprine 10 MG TAB PO PRN ×3 (04:16→20:58)
[2022-06-19] MEDS: HYDROcodone/Acetaminophen 10/325 mg Tablet PO PRN ×3 (04:16→23:55)
[2022-06-19 06:02] LABS: Hemoglobin 10.3 g/dL (14.0-18.0); Mean Corpuscular HGB CONC 34.4 g/dL (32.0-36.0); Mean Corpuscular Hemoglobin 32.2 pg (27.0-31.0); Mean Corpuscular Volume 93.7 fl (78.0-98.0); Mean Platelet Volume 7.2 fL (7.4-10.4); Platelet Count 204 10x3/uL (130-400); RBC Distribution Width 10.6 % (11.5-14.5)
[2022-06-19] MEDS: Gabapentin 400 MG CAP PO SCH ×4 (08:41→20:58)
[2022-06-19] MEDS: Ferrous Gluconate 324 MG TAB PO SCH ×2 (08:41→20:58)
[2022-06-19] MEDS: Gabapentin 300 MG CAP PO SCH (08:43)
[2022-06-19] MEDS: Multivitamin W/ Minerals 1 TAB PO SCH (08:43)
[2022-06-19] MEDS: DULoxetine 60 MG CAP PO SCH (08:43)
[2022-06-19] MEDS: Fish Oil 1,000 MG CAP PO SCH (08:43)
[2022-06-19] MEDS: Cholecalciferol 1,000 UNITS (25 MCG) TAB PO SCH (08:43)
[2022-06-19] MEDS: Aspirin Chewable 81 MG TAB PO SCH (08:43)
[2022-06-19] MEDS: Senokot S 8.6-50 MG TAB PO SCH ×2 (08:44→20:58)
[2022-06-19] MEDS ORDERED: Amlodipine 5 MG TAB PO SCH ×2 (09:00→15:45)
[2022-06-19] MEDS ORDERED: [UNRECOGNIZED DRUG - OTHER] PO SCH (10:30)
[2022-06-19] MEDS: Atorvastatin Calcium 20 MG TAB PO SCH (20:59)
[2022-06-19] MEDS: tiZANidine HCl 4 MG TAB PO SCH (20:59)
[2022-06-19] MEDS: Tamsulosin HCl 0.4 MG CAP PO SCH (20:59)
[2022-06-19] MEDS: Azelastine 137 MCG/Spray 30 ML NS SCH (20:59)
[2022-06-19] MEDS: Zolpidem Tartrate 5 MG TAB PO PRN (23:55)
[2022-06-20 06:10] LABS: Hemoglobin 10.9 g/dL (14.0-18.0); Mean Corpuscular HGB CONC 34.5 g/dL (32.0-36.0); Mean Corpuscular Hemoglobin 32.7 pg (27.0-31.0); Mean Corpuscular Volume 94.9 fl (78.0-98.0); Mean Platelet Volume 7.1 fL (7.4-10.4); Platelet Count 244 10x3/uL (130-400); RBC Distribution Width 10.9 % (11.5-14.5); Red Blood Cell (RBC) Count 3.34 mill/uL (4.70-6.10); White Blood Cell (WBC) Count 5.7 10x3/uL (4.8-10.8)
[2022-06-20] MEDS: HYDROcodone/Acetaminophen 10/325 mg Tablet PO PRN ×2 (06:26→14:50)
[2022-06-20] MEDS: Cyclobenzaprine 10 MG TAB PO PRN ×2 (06:27→14:49)
[2022-06-20] MEDS: Amlodipine 10 MG TAB PO SCH (08:47)
[2022-06-20] MEDS: DULoxetine 60 MG CAP PO SCH (08:47)
[2022-06-20] MEDS: Gabapentin 400 MG CAP PO SCH ×4 (08:47→21:17)
[2022-06-20] MEDS: Fish Oil 1,000 MG CAP PO SCH (08:47)
[2022-06-20] MEDS: Multivitamin W/ Minerals 1 TAB PO SCH (08:47)
[2022-06-20] MEDS: Ferrous Gluconate 324 MG TAB PO SCH ×2 (08:48→21:18)
[2022-06-20] MEDS: Aspirin Chewable 81 MG TAB PO SCH (08:48)
[2022-06-20] MEDS: Cholecalciferol 1,000 UNITS (25 MCG) TAB PO SCH (08:48)
[2022-06-20] MEDS: Gabapentin 300 MG CAP PO SCH (08:48)
[2022-06-20] MEDS: Senokot S 8.6-50 MG TAB PO SCH ×2 (08:49→21:17)
[2022-06-20] MEDS: traMADol HCl 50 MG TAB PO PRN (10:35)
[2022-06-20] MEDS: tiZANidine HCl 4 MG TAB PO SCH (21:17)
[2022-06-20] MEDS: Azelastine 137 MCG/Spray 30 ML NS SCH (21:17)
[2022-06-20] MEDS: Tamsulosin HCl 0.4 MG CAP PO SCH (21:17)
[2022-06-20] MEDS: Atorvastatin Calcium 20 MG TAB PO SCH (21:18)
[2022-06-20] MEDS: Zolpidem Tartrate 5 MG TAB PO PRN (21:18)
[2022-06-21] MEDS: Cyclobenzaprine 10 MG TAB PO PRN ×3 (02:12→18:01)
[2022-06-21] MEDS: HYDROcodone/Acetaminophen 10/325 mg Tablet PO PRN ×3 (02:12→20:20)
[2022-06-21 05:46] LABS: Hemoglobin 10.3 g/dL (14.0-18.0); Mean Corpuscular HGB CONC 34.7 g/dL (32.0-36.0); Mean Corpuscular Hemoglobin 32.7 pg (27.0-31.0); Mean Corpuscular Volume 94.3 fl (78.0-98.0); Mean Platelet Volume 6.9 fL (7.4-10.4); Platelet Count 231 10x3/uL (130-400); RBC Distribution Width 10.9 % (11.5-14.5); Red Blood Cell (RBC) Count 3.14 mill/uL (4.70-6.10); White Blood Cell (WBC) Count 5.4 10x3/uL (4.8-10.8)
[2022-06-21] MEDS: DULoxetine 60 MG CAP PO SCH (08:37)
[2022-06-21] MEDS: Ferrous Gluconate 324 MG TAB PO SCH ×2 (08:37→20:15)
[2022-06-21] MEDS: Fish Oil 1,000 MG CAP PO SCH (08:37)
[2022-06-21] MEDS: Aspirin Chewable 81 MG TAB PO SCH (08:37)
[2022-06-21] MEDS: Gabapentin 400 MG CAP PO SCH ×4 (08:38→20:15)
[2022-06-21] MEDS: Multivitamin W/ Minerals 1 TAB PO SCH (08:38)
[2022-06-21] MEDS: Gabapentin 300 MG CAP PO SCH (08:39)
[2022-06-21] MEDS: Senokot S 8.6-50 MG TAB PO SCH ×2 (08:39→20:17)
[2022-06-21] MEDS: Cholecalciferol 1,000 UNITS (25 MCG) TAB PO SCH (08:39)
[2022-06-21] MEDS: Amlodipine 10 MG TAB PO SCH (08:39)
[2022-06-21] MEDS: [UNRECOGNIZED DRUG - OTHER] PO SCH (08:42)
[2022-06-21] MEDS: traMADol HCl 50 MG TAB PO PRN ×2 (12:42→21:52)
[2022-06-21] MEDS: Azelastine 137 MCG/Spray 30 ML NS SCH (20:14)
[2022-06-21] MEDS: Atorvastatin Calcium 20 MG TAB PO SCH (20:15)
[2022-06-21] MEDS: Tamsulosin HCl 0.4 MG CAP PO SCH (20:17)
[2022-06-21] MEDS: tiZANidine HCl 4 MG TAB PO SCH (20:17)
[2022-06-21] MEDS: Zolpidem Tartrate 5 MG TAB PO PRN (21:53)
[2022-06-22] MEDS: HYDROcodone/Acetaminophen 10/325 mg Tablet PO PRN ×4 (03:19→19:50)
[2022-06-22] MEDS: Cyclobenzaprine 10 MG TAB PO PRN ×3 (03:21→23:07)
[2022-06-22 05:30] LABS: Hemoglobin 11.1 g/dL (14.0-18.0); Mean Corpuscular HGB CONC 35.8 g/dL (32.0-36.0); Mean Corpuscular Hemoglobin 33.9 pg (27.0-31.0); Mean Corpuscular Volume 94.5 fl (78.0-98.0); Mean Platelet Volume 6.9 fL (7.4-10.4); Platelet Count 286 10x3/uL (130-400); RBC Distribution Width 10.9 % (11.5-14.5); Red Blood Cell (RBC) Count 3.29 mill/uL (4.70-6.10); White Blood Cell (WBC) Count 4.5 10x3/uL (4.8-10.8)
[2022-06-22] MEDS: Ferrous Gluconate 324 MG TAB PO SCH ×2 (09:05→19:48)
[2022-06-22] MEDS: Gabapentin 400 MG CAP PO SCH ×4 (09:05→19:48)
[2022-06-22] MEDS: Multivitamin W/ Minerals 1 TAB PO SCH (09:07)
[2022-06-22] MEDS: Gabapentin 300 MG CAP PO SCH (09:10)
[2022-06-22] MEDS: Senokot S 8.6-50 MG TAB PO SCH ×2 (09:10→19:47)
[2022-06-22] MEDS: DULoxetine 60 MG CAP PO SCH (09:10)
[2022-06-22] MEDS: Fish Oil 1,000 MG CAP PO SCH (09:10)
[2022-06-22] MEDS: Cholecalciferol 1,000 UNITS (25 MCG) TAB PO SCH (09:12)
[2022-06-22] MEDS: Amlodipine 10 MG TAB PO SCH (09:12)
[2022-06-22] MEDS: Aspirin 81 mg Enteric Coated Tablet PO SCH ×2 (09:17→19:50)
[2022-06-22] MEDS: traMADol HCl 50 MG TAB PO PRN ×2 (12:29→23:06)
[2022-06-22] MEDS: Azelastine 137 MCG/Spray 30 ML NS SCH (19:43)
[2022-06-22] MEDS: Tamsulosin HCl 0.4 MG CAP PO SCH (19:47)
[2022-06-22] MEDS: Zolpidem Tartrate 5 MG TAB PO PRN (19:47)
[2022-06-22] MEDS: Atorvastatin Calcium 20 MG TAB PO SCH (19:49)
[2022-06-22] MEDS: tiZANidine HCl 4 MG TAB PO SCH (19:50)
[2022-06-23] MEDS: HYDROcodone/Acetaminophen 10/325 mg Tablet PO PRN ×2 (01:00→08:35)
[2022-06-23 06:05] LABS: Hemoglobin 10.6 g/dL (14.0-18.0); Mean Corpuscular HGB CONC 33.9 g/dL (32.0-36.0); Mean Corpuscular Hemoglobin 32.1 pg (27.0-31.0); Mean Corpuscular Volume 94.6 fl (78.0-98.0); Mean Platelet Volume 6.9 fL (7.4-10.4); Platelet Count 308 10x3/uL (130-400); Red Blood Cell (RBC) Count 3.31 mill/uL (4.70-6.10); White Blood Cell (WBC) Count 4.7 10x3/uL (4.8-10.8)
[2022-06-23] MEDS: Cyclobenzaprine 10 MG TAB PO PRN (06:40)
[2022-06-23] MEDS: traMADol HCl 50 MG TAB PO PRN (06:41)
[2022-06-23] MEDS: Fish Oil 1,000 MG CAP PO SCH (08:35)
[2022-06-23] MEDS: Senokot S 8.6-50 MG TAB PO SCH (08:35)
[2022-06-23] MEDS: Ferrous Gluconate 324 MG TAB PO SCH (08:36)
[2022-06-23] MEDS: Gabapentin 300 MG CAP PO SCH (08:37)
[2022-06-23] MEDS: Multivitamin W/ Minerals 1 TAB PO SCH (08:37)
[2022-06-23] MEDS: Cholecalciferol 1,000 UNITS (25 MCG) TAB PO SCH (08:37)
[2022-06-23] MEDS: Amlodipine 10 MG TAB PO SCH (08:37)
[2022-06-23] MEDS: Aspirin 81 mg Enteric Coated Tablet PO SCH (08:37)
[2022-06-23] MEDS: [UNRECOGNIZED DRUG - OTHER] PO SCH (08:42)
[2022-06-23] MEDS ORDERED: hydrALAZINE 20 MG/ML VIAL SLOW IVP PRN (10:30)
[2022-06-23] MEDS: Gabapentin 400 MG CAP PO SCH (10:40)
[2022-06-23] MEDS: DULoxetine 60 MG CAP PO SCH (10:41)
[2022-06-23 12:52] VITALS: BP 127/78; TEMP 97.2
== END 2022-06-23 14:06 | DRG 470 ==
LOC: INTOOBSV 06-15 05:35 → SURG A 06-15 05:35 → SURG B 06-15 15:23 → OBSVTOIN 06-17 15:16
PROVIDERS: ADMIT Orthopaedic Surgery; ATTEND Orthopaedic Surgery
PROC: 0SRD0J9 Replacement of Left Knee Joint with Synthetic Substitute, Cemented, Open Approach (ICD-10-PCS; principal; 2022-06-15)
PROC: 3E0U33Z Introduction of Anti-inflammatory into Joints, Percutaneous Approach (ICD-10-PCS; 2022-06-15)
DX: M17.0 Bilateral primary osteoarthritis of knee (principal); D64.89 Other specified anemias; Z20.822 Contact with and (suspected) exposure to COVID-19; I10 Essential (primary) hypertension; N40.0 Benign prostatic hyperplasia without lower urinary tract symptoms; E78.00 Pure hypercholesterolemia, unspecified; G47.30 Sleep apnea, unspecified; Z79.899 Other long term (current) drug therapy; Z99.89 Dependence on other enabling machines and devices; Z86.73 Personal history of transient ischemic attack (TIA), and cerebral infarction without residual deficits; Z98.890 Other specified postprocedural states
CPT/HCPCS: 36415; 80048; 81003; 85025; 85027; 85610; 86850; 86900; 86901; 87081; 87811; A4306; C1713; C1776; J0360; J1030; J1170; J1885; J2001; J2250; J2270; J2405; J2550; J2704; J2795; J3010; J3370; J3490; J7050; S0020; U0002

== ENCOUNTER 2022-06-11 11:01 | Outpatient (CLI) | payer MEDICARE | END 2022-06-11 11:02 | disposition home or self-care (01) | LOC: LABBT 11:01 | PROVIDERS: ATTEND Orthopaedic Surgery | DX: Z01.818 Encounter for other preprocedural examination (principal); M17.0 Bilateral primary osteoarthritis of knee | CPT/HCPCS: 71046; 80048; 81003; 85025; 85610; 86850; 86900; 86901; 87081; 93005; 93010 ==

== ENCOUNTER 2022-09-15 11:14 | Outpatient (CLI) | payer MEDICARE | END 2022-09-15 11:15 | disposition home or self-care (01) | LOC: RAD 11:14 | PROVIDERS: ATTEND Nurse Practitioner Family | DX: M96.1 Postlaminectomy syndrome, not elsewhere classified (principal); M47.814 Spondylosis without myelopathy or radiculopathy, thoracic region; Z98.1 Arthrodesis status | CPT/HCPCS: 72072; 72120 ==

== ENCOUNTER 2023-06-10 14:15 | Outpatient (CLI) | payer MEDICARE ==
[2023-06-10 15:37] LABS: #Eosinphils 0.1 10x3/uL (0.0-0.5); #Monocytes 0.5 10x3/uL (0.0-1.1); #Neutrophils 2.5 10x3/uL (1.5-8.4); %Basophils 0.7 % (0.0-2.0); %Eosinophils 1.9 % (0.0-6.0); %Lymphocytes 25.2 % (18.0-47.0); %Monocytes 11.8 % (0.0-10.0); %Neutrophils 60.2 % (40.0-75.0); Hematocrit 43.6 % (38.8-50.0); Hemoglobin 15.5 g/dL (13.5-17.5); Mean Corpuscular HGB CONC 35.6 g/dL (32.0-36.0); Mean Corpuscular Hemoglobin 34.4 pg (27.0-33.0); Mean Corpuscular Volume 96.7 fl (81.2-95.1); Mean Platelet Volume 10.3 fl (7.4-10.4); Platelet Count 173 10x3/uL (150-450); RBC Distribution Width 12.4 % (11.5-14.5); Red Blood Cell (RBC) Count 4.51 10x6/uL (4.32-5.72); White Blood Cell (WBC) Count 4.2 10x3/uL (3.5-10.5)
[2023-06-10 15:44] LABS: INR-International Normal Ratio 0.9; Prothrombin Time 10.1 sec (9.5-12.1)
[2023-06-10 15:45] LABS: Bilirubin Neg (Negative); Blood, Urine Negative (Negative); Clarity Clear (Clear); Glucose, Urine (Dipstick) Normal (Negative); Ketone, Urine Negative (Negative); Leukocyte Negative (Negative); Nitrite Negative (Negative); Protein, Urine (Dipstick) Negative (Neg-Trace); Specific Gravity, Urine 1.015 (1.005-1.030); Urobilinogen Normal mg/dL (Less than 2)
[2023-06-10 15:48] LABS: Anion Gap 11 mmol/L (10-20); BUN (Urea Nitrogen) 12 mg/dL (8.4-25.7); Calc. Creatinine Clearance 0 mL/min (70-130); Calcium 8.7 mg/dL (7.8-10.44); Carbon Dioxide 29 mmol/L (23-31); Chloride 106 mmol/L (98-107); Estimated GFR 61; Glucose 88 mg/dL (83-110); Potassium 4.3 mmol/L (3.5-5.1); Sodium 142 mmol/L (136-145)
== END 2023-06-10 14:16 | disposition home or self-care (01) ==
LOC: LABBT 14:15
PROVIDERS: ATTEND Orthopaedic Surgery
DX: Z01.818 Encounter for other preprocedural examination (principal); M17.11 Unilateral primary osteoarthritis, right knee
CPT/HCPCS: 71046; 80048; 81003; 85025; 85610; 86850; 86900; 86901; 87081; 93005; 93010

== ENCOUNTER 2023-06-16 06:27 | Observation (INO) | payer MEDICARE ==
[2023-06-10 14:56] VITALS: BMI 29.2
[2023-06-16] MEDS ORDERED: PROPOFOL 20 ML ONE (06:37)
[2023-06-16] MEDS ORDERED: Fentanyl 250 MCG/5 ML VIAL ONE (06:37)
[2023-06-16] MEDS ORDERED: Midazolam HCl 2 mg/2 ml Vial ONE (06:37)
[2023-06-16] MEDS ORDERED: Lidocaine 2% 6 ML (Jelly) SYR ONE (06:38)
[2023-06-16] MEDS ORDERED: Vancomycin (BATCH) 1.5 GM/300 ML BAG ONE (06:40)
[2023-06-16] MEDS ORDERED: Sodium Chloride 0.9% 100 ML ONE ×2 (06:40→07:14)
[2023-06-16] MEDS ORDERED: Tranexamic Acid 1,000 MG/10 ML VIAL ONE (06:40)
[2023-06-16] MEDS ORDERED: Bupivacaine HCl 0.5%/Epinephrine 1:200,000/PF 30 ml Vial ONE (07:00)
[2023-06-16] MEDS ORDERED: CEFAZOLIN 2 GM VIAL ONE (07:14)
[2023-06-16] MEDS ORDERED: Bupivacaine PF 0.5% 30 ML VIAL ONE ×2 (07:14→08:28)
[2023-06-16] MEDS ORDERED: ePHEDrine Sulfate 50 MG/10 ML VIAL ONE (08:07)
[2023-06-16] MEDS ORDERED: diphenhydrAMINE 50 MG/ML VIAL IM/IV PRN (08:15)
[2023-06-16] MEDS ORDERED: Ketorolac Tromethamine 30 MG (1 mL) VIAL IVP PRN (08:15)
[2023-06-16] MEDS ORDERED: Ropivacaine 0.2% 550 ML 550 ML NERVE BLCK SCH (08:15)
[2023-06-16] MEDS ORDERED: Promethazine HCl 25 MG/ML VIAL IM PRN ×3 (08:15→10:25)
[2023-06-16] MEDS ORDERED: Ondansetron PF 4 MG/2 ML Vial IVP PRN ×3 (08:15→10:25)
[2023-06-16] MEDS ORDERED: Zolpidem Tartrate 5 MG TAB PO PRN ×3 (08:15→10:25)
[2023-06-16] MEDS ORDERED: Ondansetron PF 4 MG/2 ML Vial ONE (08:20)
[2023-06-16] MEDS ORDERED: HYDROmorphone 2 MG/ML VIAL ONE ×2 (08:20→08:35)
[2023-06-16] MEDS ORDERED: Ketorolac Tromethamine 30 MG (1 mL) VIAL ONE (08:20)
[2023-06-16] MEDS ORDERED: Dexamethasone 20 MG/5 ML VIAL ONE (08:20)
[2023-06-16] MEDS ORDERED: Lidocaine 1% (PF) 30 ML VIAL ONE (08:28)
[2023-06-16] MEDS ORDERED: hydrALAZINE 20 MG/ML VIAL ONE (10:17)
[2023-06-16] MEDS ORDERED: Acetaminophen 325 MG TAB PO PRN (10:25)
[2023-06-16] MEDS ORDERED: diphenhydrAMINE 25 MG CAP PO PRN (10:25)
[2023-06-16] MEDS: CEFAZOLIN 2 GM in Sodium Chloride 0.9% 100 ML IVPB SCH (14:47)
[2023-06-16] MEDS: diphenhydrAMINE 25 MG CAP PO PRN (16:04)
[2023-06-16] MEDS ORDERED: Non-Formulary Item 1 EACH (Gabapentin [Gabapentin] 800 MG Tablet) PO SCH (17:00)
[2023-06-16] MEDS ORDERED: Vancomycin 1.25 GM in Sodium Chloride 0.9% 250 ML 250 ML IVPB SCH (21:00)
[2023-06-16] MEDS: Gabapentin 300 MG CAP PO SCH (21:59)
[2023-06-16] MEDS: Senokot S 8.6-50 MG TAB PO SCH (22:02)
[2023-06-16] MEDS: Atorvastatin Calcium 20 MG TAB PO SCH (22:03)
[2023-06-16] MEDS: Ferrous Gluconate 324 MG TAB PO SCH (22:03)
[2023-06-16] MEDS: Aspirin 81 mg Enteric Coated Tablet PO SCH (22:03)
[2023-06-16] MEDS: SODIUM CHLORIDE 0.9% IVPB SCH (23:08)
[2023-06-16] MEDS: VANCOMYCIN IVPB SCH (23:08)
[2023-06-17 04:09] LABS: Hemoglobin 12.3 g/dL (14.0-18.0); Mean Corpuscular HGB CONC 34.2 g/dL (32.0-36.0); Mean Corpuscular Hemoglobin 33.1 pg (27.0-31.0); Mean Corpuscular Volume 96.8 fl (78.0-98.0); Mean Platelet Volume 10.6 fL (7.4-10.4); Platelet Count 156 10x3/uL (130-400); Red Blood Cell (RBC) Count 3.72 mill/uL (4.70-6.10); White Blood Cell (WBC) Count 7.7 10x3/uL (4.8-10.8)
[2023-06-17] MEDS: HYDROmorphone/PF 10 MG in Sodium Chloride 0.9% 99 ML IVPB PRN (04:14)
[2023-06-17] MEDS: Cholecalciferol 1,000 UNITS (25 MCG) TAB PO SCH (08:40)
[2023-06-17] MEDS: DULoxetine 60 MG CAP PO SCH (08:40)
[2023-06-17] MEDS: Naloxegol 12.5 MG TAB PO SCH (08:40)
[2023-06-17] MEDS: Multivitamin W/ Minerals 1 TAB PO SCH (08:56)
[2023-06-17] MEDS: Fish Oil 1,000 MG CAP PO SCH (08:56)
[2023-06-17] MEDS ORDERED: HYDROmorphone/PF 10 MG in Sodium Chloride 0.9% 99 ML IVPB PRN (12:00)
[2023-06-17] MEDS: HYDROcodone/Acetaminophen 10/325 mg Tablet PO SCH ×2 (13:08→17:29)
[2023-06-17] MEDS ORDERED: HYDROcodone/Acetaminophen 10/325 mg Tablet PO SCH (15:00)
[2023-06-17] MEDS: Gabapentin 400 MG CAP PO SCH (17:27)
[2023-06-18 04:53] LABS: Hematocrit 36.5 % (42.0-52.0); Hemoglobin 12.5 g/dL (14.0-18.0); Mean Corpuscular HGB CONC 34.2 g/dL (32.0-36.0); Mean Corpuscular Volume 96.3 fl (78.0-98.0); Mean Platelet Volume 10.2 fL (7.4-10.4); Platelet Count 126 10x3/uL (130-400); RBC Distribution Width 12.2 % (11.5-14.5); Red Blood Cell (RBC) Count 3.79 mill/uL (4.70-6.10); White Blood Cell (WBC) Count 5.2 10x3/uL (4.8-10.8)
[2023-06-18] MEDS: Gabapentin 300 MG CAP PO SCH (05:29)
[2023-06-18] MEDS ORDERED: HYDROCODONE PO SCH (09:00)
[2023-06-18 12:39] VITALS: BP 207/99; TEMP 98.3
== END 2023-06-18 12:30 | disposition home or self-care (01) ==
LOC: SDC 06:27 → SURG B 10:25 → SDC 14:00 → SURG B 14:19
PROVIDERS: ADMIT Orthopaedic Surgery; ATTEND Orthopaedic Surgery
PROC: 0SRC0JZ Replacement of Right Knee Joint with Synthetic Substitute, Open Approach (ICD-10-PCS; principal; 2023-06-16)
DX: M17.11 Unilateral primary osteoarthritis, right knee (principal); I10 Essential (primary) hypertension; E78.00 Pure hypercholesterolemia, unspecified; G47.30 Sleep apnea, unspecified; Z86.73 Personal history of transient ischemic attack (TIA), and cerebral infarction without residual deficits; Z96.652 Presence of left artificial knee joint; Z98.890 Other specified postprocedural states; Z79.82 Long term (current) use of aspirin; Z79.899 Other long term (current) drug therapy
CPT/HCPCS: 27447; 61782; 85027 ×2; 97110 ×2; 97116 ×2; 97530 ×3; A4306; C1713; C1776; J0360; J1170 ×2; J3370 ×3; 36415; J0665; J1100; J1885; J2001; J2250; J2405; J2704; J2795; J3010; J3490; J7050

== ENCOUNTER 2023-07-05 15:55 | Outpatient (CLI) | payer MEDICARE | END 2023-07-05 15:56 | disposition home or self-care (01) | LOC: ULT 15:55 | PROVIDERS: ATTEND Orthopaedic Surgery | DX: M79.604 Pain in right leg (principal) ==

== ENCOUNTER 2024-02-22 15:21 | Outpatient (CLI) | payer MEDICARE | END 2024-02-22 15:22 | disposition home or self-care (01) | LOC: BICCT 15:21 | PROVIDERS: ATTEND Nurse Practitioner Family | DX: M47.22 Other spondylosis with radiculopathy, cervical region (principal); M48.02 Spinal stenosis, cervical region; M48.03 Spinal stenosis, cervicothoracic region; M47.813 Spondylosis without myelopathy or radiculopathy, cervicothoracic region; Z98.1 Arthrodesis status | CPT/HCPCS: 72125 ==